=== PATIENT | female | born 1950 | race Caucasian/White ===

== ENCOUNTER 2024-03-21 20:21 | Emergency (ER) | payer BC, SELFPAY ==
[2024-03-21 20:28] VITALS: BP 168/72
[2024-03-21 20:45] LABS: % Basophils 0.5 % (0-2); % Immature Granulocytes 0.4 % (0-0.5); % Lymphocytes 23.4 % (20.5-51.1); % Monocytes 7.7 % (1.7-9.3); Absolute Basophils 0.1 10^3/uL (0-0.2); Absolute Eosinophils 0.1 10^3/uL (0-0.7); Absolute Lymphocytes 2.3 10^3/uL (1.2-3.4); Absolute Monocytes 0.8 10^3/uL (0.1-0.6); Absolute Neutrophils 6.7 10^3/uL (1.4-6.5); Hematocrit 38.1 % (37.0-47.0); Hemoglobin 12.4 g/dL (12.0-16.0); Mean Corp Hgb Conc. 32.5 g/dL (33.0-37.0); Mean Corpuscular Hgb 29.3 pg (27.0-31.0); Mean Corpuscular Volume 90.1 fL (81.0-99.0); Mean Platelet Volume 10.4 fL (7.4-10.4); Nucleated Red Blood Cells % 0 %; Platelet Count 248 10^3/uL (130-400); Red Blood Cell Count 4.23 10^6/uL (4.20-5.40); Red Cell Dist. Width 13.6 % (11.5-14.5)
[2024-03-21 20:57] LABS: ALT (SGPT) 23 U/L (0-35); AST (SGOT) 29 U/L (14-36); Alkaline Phosphatase 80 U/L (38-126); Blood Urea Nitrogen 22 mg/dl (7-17); Calcium 9.6 mg/dl (8.4-10.2); Carbon Dioxide 27 mmol/L (22-30); Chloride 106 mmol/L (98-107); Glucose 114 mg/dl (70-99); Sodium 139 mmol/L (135-145); Total Bilirubin 0.5 mg/dl (0.2-1.3); Total Protein 6.6 g/dl (6.3-8.2); eGFR > 60.00
[2024-03-21 21:08] LABS: Troponin I < 0.012 ng/ml
[2024-03-21 22:26] VITALS: BP 167/54
[2024-03-21 22:27] VITALS: BMI 37.7
[2024-03-21 23:00] VITALS: BP 173/56
[2024-03-22] VITALS: BP 151/57
--- NOTE | 2024-03-22 01:06 | ED.GENMED ---
History of Present Illness
General
Chief Complaint: Blood Pressure Problem
Source: patient
Exam Limitations: none
Time Seen by Provider: 03/21/24 23:41
Nursing documentation reviewed up to this point in time: agreed with
Travel History
Have you had any contact with someone who has COVID-19?: No
Do you have any symptoms of coronavirus? Fever > 100 degrees, chills, cough, shortness of breath, sore throat, loss of taste or smell, muscle aches, or headache?: No
History of Present Illness
History of Present Illness:
Patient presents to ED secondary to persistently elevated blood pressure noted at home over the past 2 days, along with 24-hour history of right-sided headache and arm numbness. Patient was evaluated by her primary care physician this afternoon and
her medications were adjusted. However upon returning home, despite taking extra medications, blood pressure remained elevated. Speaking with her primary care physician, decision made to have the patient come to ED for further evaluation
treatment. Denies dizziness. Denies blurred vision. Denies chest pain or shortness of breath. Denies nausea or vomiting. Denies loss of sensation or weakness. Denies recent illness. Denies recent change in diet. Patient has not noted
increased leg swelling over the past 3 days. This had happened in the past, when her blood pressure was elevated. At that time, patient was treated with short course of HCTZ, which then has been discontinued. Today during evaluation in the
afternoon, patient was given prescription for HCTZ, first pill taken today.
Past History
Past History
ED Past Medical History: GERD and HTN
ED Past Surgical History: Cholecystectomy, Tonsilectomy and Other (Left benign breast tumor)
Social History
Tobacco: Non-smoker
Alcohol: None
Drug: None
Personal:
Living: alone
Review of Systems
Review of Systems
Allergies reviewed?: Yes
All Other Systems: ROS reviewed and negative except as documented in HPI and ROS
Constitutional: Reports no symptoms
EENT: Reports no symptoms
Respiratory: Reports no symptoms
Cardiac: Reports no symptoms
ABD/GI: Reports no symptoms
Musculoskeletal: Reports edema
Skin: Reports no symptoms
Neurological: Reports headache and numbness
Phy Exam
Physical Exam
Physical Exam:
Physical Exam
General: no apparent distress, not acutely ill. afebrile. hypertensive
Head: nc/at. eomi
Neck: supple. no meningeal signs.
Heart: s1/s2 regular rate and rhythm, no murmur. equal radial pulses.
Lungs: no acute respiratory distress. clear bilaterally
Abdomen: normal bowel sounds. not tender.
Neuro: alert and oriented. no focal neurological deficits
Skin: no rash
Psychiatric: well kept. interactive and cooperative
Extremities: no edema. no calf tenderness.
Course
Orders/Labs/Results
Orders:
Orders
03/21/24 20:30
Electrocardiogram (*1) Urgent
Reason for Study: Hypertension, Benign
CT Head W/o Iv Contrast Urgent
Comment:
Reason For Exam: headache
03/21/24 20:31
EKG- Treatment ONCE
03/21/24 20:37
Complete Blood Count/With Diff Urgent
Comprehensive Metabolic Panel Urgent
NT-proBNP Urgent
Comment: ADD ON
Troponin I Urgent
03/22/24 01:10
Add On- LAB Urgent
Tests Added?: Pro-BNP
Abnormal Lab Results
03/21/24
20:37
MCHC 32.5 L g/dL
(33.0-37.0)
Absolute Neuts (auto) 6.7 H 10^3/uL
(1.4-6.5)
Absolute Monos (auto) 0.8 H 10^3/uL
(0.1-0.6)
BUN 22 H mg/dl
(7-17)
Glucose 114 H mg/dl
(70-99)
03/21/24 20:37
03/21/24 20:37
Vital Signs
Initial and Last Documented VS:
Initial Vital Signs
Temp Pulse Resp BP Pulse Ox
98.3 F 68 20 168/72 97
03/21/24 20:28 03/21/24 20:28 03/21/24 20:28 03/21/24 20:28 03/21/24 20:28
Last Documented Vital Signs
Temp Pulse Resp BP Pulse Ox
98.3 F 55 18 151/57 98
03/21/24 20:28 03/22/24 01:00 03/22/24 01:00 03/22/24 00:00 03/22/24 01:00
MDM/Problems Addressed
MDM/Problems Addressed:
Patient with an unremarkable workup in ED, including blood work, EKG, and CT head. Patient's blood pressure improved during observation. At the time exam in ED, patient appears comfortable without any neurological deficit. Advised continual
outpatient treatment with her primary care physician, with whom she has an appointment on Tuesday.
*Critical Care Note
Total Time (30-74mins, 75-104mins- exclusive of procedures): Not Applicable
ED Attending Note
-
Portions of this chart may have been created with voice recognition software.� Occasional wrong word or��sound alike� substitutions may have occurred due to the inherent limitations of voice recognition software.
Discharge Plan
Departure
Patient Disposition: Home (Routine Discharge)
Date of Disposition: 03/22/24
Time of Disposition: 01:09
Patient with high blood pressure during this ER visit?: Yes
Discharge Problem:
Hypertension
Instructions: High Blood Pressure (DC)
Prescriptions:
No Action
metoprolol succinate 50 mg tablet extended release 24 hr
50 mg PO DAILY
losartan 100 mg tablet
100 mg PO DAILY
rosuvastatin 10 mg tablet
10 mg PO QPM
cholecalciferol (vitamin D3) [Vitamin D3] 125 mcg (5,000 unit) Tablet
125 mcg PO DAILY
pantoprazole [Protonix] 40 mg tablet,delayed release (DR/EC)
40 mg PO DAILY Qty: 30 0RF
ondansetron HCl 4 mg tablet
4 mg PO Q8H PRN (Reason: nausea and vomiting) 3 Days Qty: 10 0RF
Referrals:
Macho Prabhakar DO [Family Provider] -
Activity Restrictions/Additional Instructions:
As discussed, please follow-up with your primary care physician for reevaluation on Tuesday, as scheduled.
Interventions
Interventions:
*Risk Screen - Suicide Last Done: 03/21/24 20:28
*General Assessment Last Done: 03/21/24 20:28
*Neglect/Abuse Screening Last Done: 03/21/24 20:28
ED- Fall Risk Assessment Last Done: 03/21/24 22:30
*ED COVID-19 Vaccine History Last Done: 03/21/24 22:30
*Nursing Disposition Last Done: 03/22/24 01:19
ED- Cardiac Assessment Last Done: 03/21/24 22:30
ED- Neurological Assessment Last Done: 03/21/24 22:30
ED- Pulmonary Assessment Last Done: 03/21/24 22:30
Discharge Date and Time
Discharge Date/Time: 03/22/24 01:24
Print Language: ETHIOPIAN
[2024-03-22 02:03] LABS: NT-proBNP 590 pg/ml
== END 2024-03-22 01:24 | disposition home or self-care (01) ==
LOC: EMR 20:21
PROVIDERS: EMERGENCY PHYSICIAN Emergency Medicine; FAMILY PHYSICIAN Internal Medicine
DX: I10 Essential (primary) hypertension (principal)
CPT/HCPCS: 99285; 70450; 80053; 83880; 84484; 85025; 93005

== ENCOUNTER → 2024-04-07 08:48 | Outpatient (REF) | payer BC, SELFPAY | LOC: MRI 3T 08:48 | PROVIDERS: ATTENDING PHYSICIAN Nurse Practitioner Family; FAMILY PHYSICIAN Internal Medicine | DX: R20.2 Paresthesia of skin (principal); G44.89 Other headache syndrome | CPT/HCPCS: 70551 ==

== ENCOUNTER → 2024-04-23 07:34 | Outpatient (REF) | payer BC, SELFPAY | LOC: EMG 07:34 | PROVIDERS: ATTENDING PHYSICIAN Nurse Practitioner Family | DX: R20.2 Paresthesia of skin (principal); R20.0 Anesthesia of skin | CPT/HCPCS: 95886; 95909 ==

== ENCOUNTER → 2024-05-04 12:46 | Outpatient (REF) | payer BC, SELFPAY | LOC: HWRCS 12:46 | PROVIDERS: ATTENDING PHYSICIAN Nurse Practitioner Family | DX: R03.0 Elevated blood-pressure reading, without diagnosis of hypertension (principal); R60.0 Localized edema; I10 Essential (primary) hypertension | CPT/HCPCS: 93306 ==

== ENCOUNTER → 2024-05-25 12:42 | Outpatient (REF) | payer BC, SELFPAY | LOC: HWRAD 12:42 | PROVIDERS: ATTENDING PHYSICIAN Urology; FAMILY PHYSICIAN Internal Medicine | DX: N32.81 Overactive bladder (principal); N95.2 Postmenopausal atrophic vaginitis | CPT/HCPCS: 76770; 76856 ==

== ENCOUNTER → 2024-11-20 06:44 | Outpatient (REF) | payer MEDICARE, OTHER, SELFPAY | LOC: HWWDC 06:44 | PROVIDERS: ATTENDING PHYSICIAN Obstetrics & Gynecology; FAMILY PHYSICIAN Internal Medicine | DX: Z12.31 Encounter for screening mammogram for malignant neoplasm of breast (principal) | CPT/HCPCS: 77063; 77067 ==

== ENCOUNTER 2025-04-17 13:22 | Outpatient (RCR) | payer MEDICARE, OTHER, SELFPAY ==
[2025-04-17 13:35] VITALS: BP 149/58
[2025-04-17] MEDS: INJECTAFER 265 MG IV (13:50)
[2025-04-17 14:28] VITALS: BP 127/48
== END 2025-04-18 08:34 | disposition home or self-care (01) ==
LOC: OID 13:22
PROVIDERS: ATTENDING PHYSICIAN Nurse Practitioner Family; FAMILY PHYSICIAN Internal Medicine
DX: D50.9 Iron deficiency anemia, unspecified (principal)
CPT/HCPCS: 96365; J1439

== ENCOUNTER 2025-04-24 13:31 | Outpatient (RCR) | payer MEDICARE, OTHER, SELFPAY ==
[2025-04-24] MEDS: INJECTAFER 265 MG IV (14:07)
[2025-04-24 14:28] VITALS: BP 138/49
[2025-04-24 15:12] VITALS: BP 135/58
== END 2025-04-25 08:11 | disposition home or self-care (01) ==
LOC: OID 13:31
PROVIDERS: ATTENDING PHYSICIAN Nurse Practitioner Family; FAMILY PHYSICIAN Internal Medicine
DX: D50.9 Iron deficiency anemia, unspecified (principal); G25.81 Restless legs syndrome; G47.34 Idiopathic sleep related nonobstructive alveolar hypoventilation
CPT/HCPCS: 96365; J1439

== ENCOUNTER → 2025-06-25 10:52 | Outpatient (REF) | payer MEDICARE, OTHER, SELFPAY | LOC: HWRAD 10:52 | PROVIDERS: ATTENDING PHYSICIAN Nurse Practitioner Family; FAMILY PHYSICIAN Internal Medicine | DX: R06.02 Shortness of breath (principal) | CPT/HCPCS: 71046 ==

== ENCOUNTER → 2025-08-19 07:06 | Outpatient (REF) | payer MEDICARE, OTHER, SELFPAY ==
[2025-08-19 10:05] LABS: ALT (SGPT) 21 U/L (0-35); AST (SGOT) 25 U/L (14-36); Albumin 4.2 g/dl (3.5-5.0); Alkaline Phosphatase 73 U/L (38-126); Blood Urea Nitrogen 25 mg/dl (7-17); Calcium 9.2 mg/dl (8.4-10.2); Carbon Dioxide 31 mmol/L (22-30); Chloride 103 mmol/L (98-107); Glucose 129 mg/dl (70-99); Potassium 3.5 mmol/L (3.5-5.1); Sodium 142 mmol/L (135-145); Total Protein 6.9 g/dl (6.3-8.2); eGFR > 60.00
== END ==
LOC: HWLAB 07:06
PROVIDERS: ATTENDING PHYSICIAN Internal Medicine
DX: Z01.818 Encounter for other preprocedural examination (principal)
CPT/HCPCS: 36415; 80053

== ENCOUNTER → 2025-08-27 14:05 | Outpatient (REF) | payer MEDICARE, OTHER, SELFPAY | LOC: RAD 14:05 | PROVIDERS: ATTENDING PHYSICIAN Internal Medicine | DX: K44.9 Diaphragmatic hernia without obstruction or gangrene (principal) | CPT/HCPCS: 71260; Q9967 ==